=== PATIENT | female | born 1990 | race Caucasian/White ===

== ENCOUNTER → 2022-03-30 | Day surgery (SDC) | payer BC ==
[~2022-03-30] MED LIST: FENTANYL CITRATE/PF 100MCG/2 ML INJ ONE; METOCLOPRAMIDE HCL 10 MG/2ML VIAL ONE; MIDAZOLAM HCL 2 MG/2 ML VIAL ONE; PROPOFOL IV EMULSION 10 MG/ML 20 ML VIAL ONE; WELLBUTRIN XL150 MG PO
[2022-03-30 10:55] VITALS: BP 112/63
[2022-04-04 06:12] LABS: ENDOMYSIAL ANTIBODIES, IGA Negative (Negative)
== END | disposition home or self-care (01) ==
LOC: OR 08:07
PROVIDERS: ATTEND Internal Medicine Gastroenterology
DX: K29.50 Unspecified chronic gastritis without bleeding (principal); K20.90 Esophagitis, unspecified without bleeding; R19.7 Diarrhea, unspecified; Z71.3 Dietary counseling and surveillance; F32.A Depression, unspecified; Z88.0 Allergy status to penicillin; Z01.812 Encounter for preprocedural laboratory examination; Z20.822 Contact with and (suspected) exposure to COVID-19; Z68.31 Body mass index [BMI] 31.0-31.9, adult
CPT/HCPCS: 0223U; 36415 ×2; 43239; 82784; 83516; 84702; 86256; C9113; J2250; J2704; J2765; J3010